=== PATIENT | female | born 1935 | race Caucasian/White ===

== ENCOUNTER 2016-08-10 12:27 | Emergency (ER) | payer MEDICARE, MEDICAID ==
[~2016-08-10] VITALS: Ht 152.4 cm; Wt 59.0 kg
[2016-08-10] MEDS ORDERED: AMLO1CAP6 PO (12:36)
[2016-08-10] MEDS ORDERED: DONE5TAB33 PO (12:37)
[2016-08-10] MEDS ORDERED: ACETAMINOPHEN 325MG TABLET PO ONE (14:00)
[2016-08-10] MEDS ORDERED: TETANUS, DIPHTHERIA, PERTUSSIS VAC/PF 0.5ML (>7YR OLD) IM ONE (14:15)
[2016-08-10 16:58] VITALS: BP 158/63
== END 2016-08-10 17:00 | disposition home or self-care (01) ==
LOC: ER 15:56
DX: S01.01XA Laceration without foreign body of scalp, initial encounter (principal); F03.90 Unspecified dementia, unspecified severity, without behavioral disturbance, psychotic disturbance, mood disturbance, and anxiety; I10 Essential (primary) hypertension; Z88.0 Allergy status to penicillin; Z88.8 Allergy status to other drugs, medicaments and biological substances; Z88.5 Allergy status to narcotic agent; Z88.2 Allergy status to sulfonamides; W19.XXXA Unspecified fall, initial encounter; Y93.89 Activity, other specified; Y92.89 Other specified places as the place of occurrence of the external cause; Y99.8 Other external cause status
CPT/HCPCS: 70450; 72170; 90471; 90715; 96372; 99284